=== PATIENT | female | born 2000 | race Caucasian/White ===

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

== ENCOUNTER 2021-02-01 04:30 | Emergency (ER) | payer SELFPAY ==
[~2021-02-01] VITALS: Ht 162.5 cm; Wt 54.4 kg
[2021-02-01 04:40] VITALS: BP 108/88
[2021-02-01 05:01] LABS: BILIRUBIN,URINE NEGATIVE (NEGATIVE); CLARITY,URINE CLEAR; COLOR,URINE YELLOW; GLUCOSE, URINE (UA) NEGATIVE (NEGATIVE); KETONES,URINE NEGATIVE (NEGATIVE); LEUKOCYTE ESTERASE ,URINE NEGATIVE (NEGATIVE); NITRITE,URINE NEGATIVE (NEGATIVE); PH,URINE 7.5 (5-9); PROTEIN,URINE NEGATIVE (NEGATIVE)
[2021-02-01 05:10] LABS: BACTERIA,URINE NEGATIVE /HPF; SQUAMOUS EPITHELIAL CELL,UR 25-50 /HPF
--- NOTE | 2021-02-01 05:24 | ED General ---
General Chief Complaint: Cough/Cold/Flu Symptoms Stated Complaint: UTI / N/V/D Nursing Triage Note: fever, sore throat, garcia/body ache, burning with urination x4 days. seen at [facility] for same reports started on amoxicillin without improvement. 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 PT DOES NOT WEAR A MASK AT WORK PT SEEN AT [facility] ON TUESDAY FOR THESE SYMPTOMS HAD STREP TEST DONE AND WAS NEGATIVE. NO OTHER TESTS WERE DONE STATES SHE WAS PRESCRIBED AMOXIL AND IS NOT BETTER PT DOES NOT SMOKE OR DRINK OR USE DRUGS PT DENIES ANY CHRONIC MEDICAL PROBLEMS PCP: DR. KERNS Allergies and Home Medications Home Medications Azithromycin 500 Mg Tablet, 500 MG PO DAILY Prescribed by: FIDE GAMEZ on 02/01/21538 Phenazopyridine HCl 200 Mg Tablet, 1 TAB PO TID Prescribed by: FIDE GAMEZ on 02/01/21538 Prednisone 20 Mg Tab, 40 MG PO DAILY Prescribed by: FIDE GAMEZ on 02/01/21538 Patient Home Medication List Home Medication List Reviewed: Yes Review of Systems Review of Systems Constitutional: see HPI, fever EENTM: see HPI, throat pain Respiratory: no symptoms reported; No cough, No short of breath Cardiovascular: no symptoms reported Gastrointestinal: no symptoms reported; No abdominal pain, No nausea, No vomiting Genitourinary: see HPI; No discharge; dysuria : No LMP: Jan 18, 2021 Musculoskeletal: see HPI (BODY ACHES) Skin: no symptoms reported; No rash Psychiatric/Neurological: See HPI, Headache Hematologic/Lymphatic: No Symptoms Reported Immunological/Allergic: no symptoms reported Past Mxepkmq-Rcjmby-Wkolgk Hx Patient Social History Tobacco Use?: No Smokeless Tobacco Frequency: Never a User Use of E-Cig and/or Vaping dev: No Use of E-Cig and/or Vaping Hong: Never a User Substance use?: No Alcohol Use?: No Pt feels they are or have been: No Past Medical History Surgeries: No Respiratory: No Cardiac: No Neurological: No : No Last Menstrual Period: Jan 18, 2021 Reproductive Disorders: No Genitourinary: No Gastrointestinal: No Musculoskeletal: No Endocrine: No HEENT: No Cancer: No Psychosocial: No Integumentary: No Blood Disorders: No Physical Exam Vital Signs Vital Signs - First Documented 02/01/21 04:40 Temp 36.9 Pulse 94 Resp 18 B/P (MAP) 108/88 (95) Pulse Ox 96 O2 Delivery Room Air Capillary Refill : Less Than 3 Seconds Height, Weight, BMI Height: '" Weight: lbs. oz. kg; 20.00 BMI Method: General Appearance: No Apparent Distress, WD/WN, Thin, Other (DOES NOT APPEAR ILL OR TO BE IN ANY DISCOMFORT OR DISTRESS) HEENT: PERRL/EOMI, TMs Normal, Moist Mucous Membranes, Pharyngeal Erythema; No Photophobia, No Tonsillar Exudate, No Tonsillar Enlargement Neck: Full Range of Motion, Non Tender, Supple, Lymphadenopathy (L) (ANTERIOR), Lymphadenopathy (R) (ANTERIOR) Respiratory: Normal Breath Sounds, No Accessory Muscle Use, No Respiratory Distress Cardiovascular: Regular Rate, Rhythm, No Edema, No JVD, No Murmur, Normal Peripheral Pulses Gastrointestinal: Normal Bowel Sounds, No Organomegaly, Non Tender, Soft Back: No CVA Tenderness Extremity: Normal Capillary Refill, Normal Inspection, No Pedal Edema Neurologic/Psychiatric: Alert, Oriented x3, No Motor/Sensory Deficits, Normal Mood/Affect, research and development director II-XII Norm as Tested Skin: Normal Color, Warm/Dry; No Rash Progress/Results/Core Measures Suspected Sepsis SIRS Temperature: Pulse: 94 Respiratory Rate: 18 Blood Pressure 108 /88 Mean: 95 Results/Orders Lab Results Laboratory Tests Test 02/01/21 04:48 02/01/21 04:50 Range/Units Influenza Type A (RT-PCR) Not Detected Not Detecte Influenza Type B (RT-PCR) Not Detected Not Detecte SARS-CoV-2 RNA (RT-PCR) Not Detected Not Detecte Group A Streptococcus Screen NEGATIVE NEGATIVE Urine Color YELLOW Urine Clarity CLEAR Urine pH 7.5 5-9 Urine Specific [place] 1.020 1.016-1.022 Urine Protein NEGATIVE NEGATIVE Urine Glucose (UA) NEGATIVE NEGATIVE Urine Ketones NEGATIVE NEGATIVE Urine Nitrite NEGATIVE NEGATIVE Urine Bilirubin NEGATIVE NEGATIVE Urine Urobilinogen 1.0 < = 1.0 MG/DL Urine Leukocyte Esterase NEGATIVE NEGATIVE Urine RBC (Auto) NEGATIVE NEGATIVE Urine RBC NONE /HPF Urine WBC NONE /HPF Urine Squamous Epithelial Cells 25-50 H /HPF Urine Crystals NONE /LPF Urine Bacteria NEGATIVE /HPF Urine Casts NONE /LPF Urine Mucus NEGATIVE /LPF Urine Culture Indicated NO My Orders Orders - FIDE GAMEZ DO Covid 19 Inhouse Test (02/01/21 04:42) Ua Culture If Indicated (02/01/21 04:42) Urine Bedside (02/01/21 04:42) Influenza A And B By Pcr (02/01/21 04:42) Rapid Strep A Screen (02/01/21 04:42) Vital Signs/I&O 02/01/21 04:40 Temp 36.9 Pulse 94 Resp 18 B/P (MAP) 108/88 (95) Pulse Ox 96 O2 Delivery Room Air Capillary Refill : Less Than 3 Seconds Blood Pressure Mean: 95 Progress Note : Progress Note PLACED IN ISOLATION ROOM PPE WORN AT ALL TIMES COVID-19 TESTING PERFORMED DISCUSSED WITH PT THE OPTION OF DOING TEST FOR MONO, AND SHE DECLINES AT THIS TIME. ADVISED HER THAT IF SYMPTOMS PERSIST, SHE MAY DISCUSS THIS WITH HER PCP AN OUTPATIENT TEST--ADVISED HER TO FOLLOW UP WITH HER PCP IN 2-3 DAYS FOR FURTHER CARE WILL CHANGE ANTIBIOTICS FOR HER SORE THROAT AND PRESCRIBE OTHER MEDICATIONS FOR SYMPTOMS Departure Impression Primary Impression: Pharyngitis Additional Impressions: Person under investigation for COVID-19 Dysuria Disposition: 01 HOME, SELF-CARE Condition: Stable Departure-Patient Inst. Decision time for Depature: 05:35 Referrals: FIDE KERNS MD (PCP/Family) Primary Care Physician Patient Instructions: COVID-19 Tests, Dysuria, Adult (DC), Sore Throat, Adult (DC), Preventing the Spread of an Infectious Disease Add. Discharge Instructions: LOTS OF CLEAR LIQUIDS--WATER, BROTH, JELLO, GATORADE FREQUENT SALT WATER GARGLES TYLENOL 1 GRAM/ MOTRIN 800 MG 4 TIMES A DAY NEEDED FOR PAIN OR FEVER FOLLOW UP WITH DR. KERNS IN 2-3 DAYS FOR RECHECK AND FURTHER CARE QUARANTINE UNTIL YOU ARE RECHECKED AND CLEARED BY YOUR DR. YOU MAY NEED TO BE RE-TESTED FOR COVID-19 IN A COUPLE OF DAYS IF YOU ARE STILL HAVING SYMPTOMS All discharge instructions reviewed with patient and/or family. Voiced understanding. Scripts Phenazopyridine HCl (Pyridium) 200 Mg Tablet 1 TAB PO TID, #15 TAB Prov: FIDE GAMEZ DO 02/01/21 Prednisone (Prednisone) 20 Mg Tab 40 MG PO DAILY, #6 TAB 0 Refills Prov: FIDE GAMEZ DO 02/01/21 Azithromycin (Zithromax) 500 Mg Tablet 500 MG PO DAILY for 5 Days, #5 TAB Prov: FIDE GAMEZ DO 02/01/21 FIDE GAMEZ DO Feb 01, 2021 05:24
[2021-02-01] MEDS ORDERED: PRD20T PO (05:39)
[2021-02-01] MEDS ORDERED: PHEN-640 PO (05:39)
[2021-02-01] MEDS ORDERED: AZIT500T PO (05:39)
== END 2021-02-01 05:47 | disposition home or self-care (01) ==
LOC: EDUNIT# 04:30 → ER 04:32
DX: J02.9 Acute pharyngitis, unspecified (principal); R30.0 Dysuria; Z20.822 Contact with and (suspected) exposure to COVID-19
CPT/HCPCS: 81000; 84703; 87430; 87636; 99284